=== PATIENT | male | born 1960 | race Asian ===

== ENCOUNTER 2024-04-05 06:07 | Emergency (ER) | payer OTHER ==
[~2024-04-05] VITALS: Ht 175.3 cm; Wt 57.8 kg
[2024-04-05 06:25] VITALS: PULSE 121; RESP 20; O2SAT 97
[2024-04-05] MEDS: SODIUM CHLORIDE 0.9% 2,100 ML IV ONE (06:25)
[2024-04-05] MEDS: *CLINICAL-CEFEPIME DOSING CLINICAL ONE (06:31)
[2024-04-05] MEDS: SODIUM CHLORIDE 0.9% 1,750 ML IV ONE (06:32)
[2024-04-05 06:38] LABS: COVID AG,FIA SOURCE NASAL SWAB
[2024-04-05] MEDS: VANCOMYCIN 1.5 GM/WATER(PEG) 300 ML IV ONE (06:39)
[2024-04-05 06:40] LABS: BASOPHILS % (AUTO) 0.5 % (0.0-2.0); EOSINOPHILS % (AUTO) 0.2 % (1.0-6.0); HEMATOCRIT 30.7 % (41-53); HEMOGLOBIN 10.7 g/dL (13.5-17.5); LYMPHOCYTES # (AUTO) 0.6 K/uL (1.0-4.8); LYMPHOCYTES % (AUTO) 7.6 % (22.0-44.0); MEAN CORPUSCULAR HEMOGLOBIN 34.1 pg (26.0-34.0); MEAN CORPUSCULAR VOLUME 97 fL (80-100); MONOCYTES # (AUTO) 0.3 K/uL (0.1-1.0); MONOCYTES % (AUTO) 3.5 % (2.0-9.0); NEUTROPHILS # (AUTO) 7.4 K/uL (1.8-7.7); PLATELET COUNT (AUTO) 187 K/uL (150-450); RED BLOOD CELL COUNT(AUTO) 3.15 MIL/uL (4.50-5.90); WHITE BLOOD COUNT (AUTO) 8.4 K/uL (4.5-11.0)
[2024-04-05 06:47] LABS: NEUTROPHILS % (AUTO) 88.2 % (40.0-70.0)
[2024-04-05 06:52] LABS: ANION GAP 11 mmol/L (8-16); CALCIUM, TOTAL 8.6 mg/dL (8.8-10.5); CARBON DIOXIDE 27 mmol/L (22-29); CHLORIDE 99 mmol/L (98-107); CREATININE 1.12 mg/dL (0.60-1.30); GLOMERULAR FILTR. RATE CALC > 60 mL/min (>60); GLUCOSE,RANDOM 199 mg/dL (70-110); POTASSIUM 3.8 mmol/L (3.5-5.1); SODIUM SERUM 137 mmol/L (136-145); UREA NITROGEN, BLOOD 13 mg/dL (7-18)
[2024-04-05 07:00] LABS: ALANINE AMINOTRANSFERASE 36 U/L (12-78); ALBUMIN 2.8 g/dL (3.4-5.0); ALKALINE PHOSPHATASE 92 U/L (46-116); ASPARTATE AMINOTRANSFERASE 27 U/L (15-37); BILIRUBIN,TOTAL 0.7 mg/dL (0.1-1.0); TOTAL PROTEIN, SERUM 6.8 g/dL (6.4-8.2)
[2024-04-05 07:01] LABS: TROPONIN I-HIGH SENSITIVITY 20 ng/L (<76)
[2024-04-05 07:03] LABS: INFLUENZA TYPE A NEGATIVE FOR TYPE A (NEGATIVE); INFLUENZA TYPE B NEGATIVE FOR TYPE B (NEGATIVE)
[2024-04-05 07:04] LABS: LACTIC ACID 4.8 mmol/L (0.4-2.0)
[2024-04-05 07:04] LABS: SARS-COV2 (COVID) ANTIGEN,FIA Negative (Negative)
[2024-04-05 07:10] LABS: B-TYPE NATRIURETIC PEPTIDE 19 pg/mL (0-100)
[2024-04-05] MEDS ORDERED: IOHEXOL 350 MG/ML 100 ML VIAL ONE (08:35)
[2024-04-05] MEDS ORDERED: SODIUM CHLORIDE 0.9% 100 ML ONE (08:35)
[2024-04-05 09:29] VITALS: O2SAT 100
[2024-04-05] MEDS: CEFEPIME HCL 2 GM in DEXTROSE 5%-WATER 50 ML IV ONE (10:16)
[2024-04-05 12:22] VITALS: BP 124/84; PULSE 67; RESP 18; TEMP 98.1
[2024-04-05] MEDS ORDERED: VANCOMYCIN HCL 750 MG in DEXTROSE 5%-WATER 150 ML IV SCH (20:00)
[2024-04-05] MEDS ORDERED: CEFEPIME HCL 2 GM in DEXTROSE 5%-WATER 50 ML IV SCH (22:00)
== END 2024-04-05 13:55 | disposition short-term general hospital (02) ==
LOC: EMS 06:07
DX: A41.9 Sepsis, unspecified organism (principal); E87.20 Acidosis, unspecified; Z46.82 Encounter for fitting and adjustment of non-vascular catheter; Z85.118 Personal history of other malignant neoplasm of bronchus and lung; Z93.1 Gastrostomy status; Z20.822 Contact with and (suspected) exposure to COVID-19
CPT/HCPCS: 99291; 96365; 71275; 71045; 96367; 87426; 80048; 80076; 83605; 83880; 84484; 85025; 87040; 87804; 36415; 93005; Q9967; J0692; J7060; J7050; J3490; J3370